=== PATIENT | male | born 1960 | race Caucasian/White ===

== ENCOUNTER 2017-07-21 13:37 | Emergency (ER) | payer OTHER ==
[~2017-07-21] VITALS: Ht 175.3 cm; Wt 117.0 kg
[2017-07-21] MEDS ORDERED: triamcinolone acetonide 40mg/ml inj IM ONE (18:00)
[2017-07-21] MEDS ORDERED: TRIA15CR61 TP (18:05)
[2017-07-21] MEDS ORDERED: METF500T PO (18:05)
[2017-07-21] MEDS ORDERED: METH4TAB81 PO (18:05)
[2017-07-21 18:48] VITALS: BP 179/130
== END 2017-07-21 18:51 | disposition home or self-care (01) ==
LOC: ER 13:39
DX: L23.7 Allergic contact dermatitis due to plants, except food (principal); E11.9 Type 2 diabetes mellitus without complications; Z79.84 Long term (current) use of oral hypoglycemic drugs; Z79.899 Other long term (current) drug therapy
CPT/HCPCS: 96372; 99283; J3301

== ENCOUNTER 2018-04-05 17:40 | Emergency (ER) | payer OTHER ==
[~2018-04-05] VITALS: Ht 600.8 cm; Wt 112.1 kg
[~2018-04-05 17:40] MED LIST: METH4TAB81 PO
[2018-04-05 17:54] VITALS: BP 149/92
[2018-04-05] MEDS ORDERED: ibuprofen tablet 400 MG TABLET PO ONE (20:20)
== END 2018-04-05 20:47 | disposition home or self-care (01) ==
LOC: ER 17:40
DX: S20.212A Contusion of left front wall of thorax, initial encounter (principal); E11.9 Type 2 diabetes mellitus without complications; Z90.49 Acquired absence of other specified parts of digestive tract; Z79.899 Other long term (current) drug therapy; V86.99XA Unspecified occupant of other special all-terrain or other off-road motor vehicle injured in nontraffic accident, initial encounter; Y93.89 Activity, other specified; Y92.488 Other paved roadways as the place of occurrence of the external cause; Y99.8 Other external cause status
CPT/HCPCS: 71045; 93005; 99284